=== PATIENT | male | born 1990 | race Caucasian/White ===

== ENCOUNTER 2024-07-09 10:43 | Emergency (ER) | payer OTHER, SELFPAY ==
--- NOTE | ~2024-07-09 | XR_ITS ---
EXAMINATION: XR finger 1st LT min 2V DATE: 07/09/2024 12:13 INDICATION: Left thumb laceration. TECHNIQUE: 3 views of left thumb were obtained. COMPARISON: None. FINDINGS: Bone alignment is normal. No fracture. 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 IMPRESSION: 1. No fracture or radiopaque foreign body. Reviewed, dictated and finalized at location A.
[2024-07-09 10:57] VITALS: BP 132/71; PULSE 92; RESP 18; TEMP 36.8; O2SAT 98
--- NOTE | 2024-07-09 12:14 | ED.WOUNDLAC ---
HPI - Wound/Laceration General Chief Complaint: Wound/Laceration Stated Complaint: l thumb laceration Time Seen by Provider: 07/09/24 11:01 Source: patient Mode of arrival: ambulatory Limitations: no limitations History of Present Illness HPI narrative: Patient is a 34-year-old male who presents the ED with report of laceration to his left thumb. Patient reports he was at work today and cut his L thumb on a piece of metal raymon. Sustained laceration to the flexor surface of his L thumb. Denies any other injuries. Denies numbness. Tetanus unknown. Related Data Allergies Allergy/AdvReac Type Severity Reaction Status Date / Time No Known Allergies Allergy Verified 07/09/24 11:35 Review of Systems Review of Systems: All systems reviewed & are unremarkable except as noted in HPI. All systems reviewed & are unremarkable except as noted in HPI and below Exam Narrative: GENERAL: Well appearing, thin, non-toxic, in no acute distress. HEAD: Normocephalic, atraumatic. RESPIRATORY: Airway patent, respirations nonlabored. CARDIOVASCULAR: Regular rate and rhythm. Radial pulses intact. MUSCULOSKELETAL: Moves all extremities. No gross deformities. Full ROM of thumb, flexion intact. Sensation intact. SKIN: Warm, dry, normal color. 2cm laceration to flexor surface of L thumb, well approximated. Minimal active bleeding. NEURO: A&O X3. Speech clear. PSYCHIATRIC: Appropriate mood and affect. Normal interaction. Course Vital Signs Vital signs: Vital Signs Temperature 98.2 F 07/09/24 10:57 Pulse Rate 92 07/09/24 10:57 Respiratory Rate 18 07/09/24 10:57 Blood Pressure 132/71 07/09/24 10:57 Pulse Oximetry 98 07/09/24 10:57 Oxygen Delivery Room Air 07/09/24 10:57 Temperature 98.2 F 07/09/24 10:57 Pulse Rate 92 07/09/24 10:57 Respiratory Rate 18 07/09/24 10:57 Blood Pressure 132/71 07/09/24 10:57 Pulse Oximetry 98 07/09/24 10:57 Oxygen Delivery Room Air 07/09/24 10:57 Procedures Laceration Laceration 1: Date: 07/09/24 Time: 12:35 Site: hand Side (If applicable): left (thumb) Size (cm): 2 Description: linear Depth: simple, single layer Local Anesthetic: lidocaine 1% Amount of anesthesia used (mL): 5 Pre-repair: wound explored, irrigated and irrigated extensively ====== Skin Level ====== Skin layer closed with: nylon Size (cm): 5-0 Number of sutures: 5 Technique: simple, interrupted ====== Subcutaneous Layer ====== ====== Muscle Layer ====== ====== Tendon Layer ====== MDM - Wound/Laceration MDM Narrative Medical decision making narrative: Neurovascularly intact. No evidence of tendon or ligament injury. X-ray without foreign body or fracture. Laceration repaired without complications. Tetanus updated. Patient given wound care instructions and reasons to return. Patient discharged in stable condition. Medical Records Attestation: I reviewed the patient's medical records. Imaging Data Attestation: I personally reviewed and interpreted this imaging study as follows: Radiologist's impression: ITS Impressions Finger X-Ray 07/09/24 12:20 IMPRESSION: 1. No fracture or radiopaque foreign body. Discharge Plan Discharge Clinical Impression: Laceration of left thumb Qualifiers: Encounter type: initial encounter Damage to nail status: without damage Foreign body presence: without foreign body Qualified Code(s): S61.012A - Laceration without foreign body of left thumb without damage to nail, initial encounter Patient Disposition: Home, Self-Care Condition: Stable Instructions: Antibiotic Form, Care For Your Stitches (ED), Laceration (ED) Additional Instructions: Return to the ED or visit an urgent care or your PCP for follow-up and wound check/suture removal in 10 to 14 days. Keep the wound dry for 24 hours. You may rem
[2024-07-09] MEDS: LIDOCAINE HCL 1% LOCAL INJ 10 ML VIAL 5 ML INFILTRATE (12:24)
[2024-07-09] MEDS: TETANUS,DIPHTHERIA,AC PERTUSSIS ADULT (0.5 ML) BOOSTRIX IM (12:49)
== END 2024-07-09 12:54 | disposition home or self-care (01) ==
PROVIDERS: Emergency Provider Physician Assistant
DX: S61.012A Laceration without foreign body of left thumb without damage to nail, initial encounter (principal); Z23 Encounter for immunization; W26.8XXA Contact with other sharp object(s), not elsewhere classified, initial encounter
CPT/HCPCS: 12001; 73140; 90471; 90715; 99283